=== PATIENT | male | born 1940 | race Caucasian/White ===

== ENCOUNTER 2018-08-06 09:09 | Day surgery (SDC) | payer MEDICARE ==
[~2018-08-06 09:09] MED LIST: Acetaminophen TAB* 325 MG PO PRN; Buffered Lidocaine 1% SYRIN* 1 ML/SYRINGE INTRADERM ONE
[2018-08-06] MEDS ORDERED: Cyclopentolate 1% OPTH.SOL* 2 ML BTL ONE (09:19)
[2018-08-06] MEDS ORDERED: Neomycin/Polymy/Dex OPTH.SUSP* MAXITROL 0.1% 5 ML ONE (09:19)
[2018-08-06] MEDS ORDERED: acetaZOLAMIDE TAB* 250 MG ONE (09:19)
[2018-08-06] MEDS ORDERED: Lidocaine 2% EPI 1:200000 MPF*10-20 ML VIAL ONE (09:19)
[2018-08-06] MEDS ORDERED: Phenylephrine 2.5% OPTH.SOL* 2 ML BTL ONE (09:19)
[2018-08-06] MEDS ORDERED: Lidocaine 1%* 5 ML VIAL ONE (09:19)
[2018-08-06] MEDS ORDERED: Proparacaine 0.5% OPHTH.SOL* 15 ML BTL ONE (09:19)
[2018-08-06] MEDS ORDERED: Povidone Iodine 5% OPTH* 30 ML BTL ONE (09:19)
[2018-08-06] MEDS ORDERED: Ketorolac 0.5% OPHTH (NF) 0.5 % 5 ML BTL ONE (09:19)
[2018-08-06] MEDS ORDERED: Midazolam* 1 MG/ML 2 ML VIAL (2 MG) ONE (10:46)
[2018-08-06 11:46] VITALS: BP 117/44
--- NOTE | 2018-08-06 12:08 | OP ---
OPERATIVE NOTE: DATE OF OPERATION: 08/06/18 DATE OF : 36 SURGEON: Norman Yoder M.D. PREOPERATIVE DIAGNOSIS: Cataract, left eye. POSTOPERATIVE DIAGNOSIS: Cataract, left eye. OPERATIVE PROCEDURE: Extracapsular cataract extraction with intraocular lens implant left eye. PROCEDURE: The patient was brought to the operating room after being given 1/2% Alcaine with epineph rine drops in the preoperative area. The eye was prepped and draped in the usual sterile fashion. S terile drape and eyelid speculum were placed. Again, topical 1/2% Alcaine with epinephrine was given . A paracentesis incision was made at the 3 o'clock position with the No.75 blade. Clear cornea inc ision 2.2 x 2.2-mm was created at the 6 o'clock position starting at the anterior limbus using the 2. 2-mm keratome. The anterior chamber was irrigated with 0.4 mL of 1% non-preservative intracameral li docaine and filled with DisCoVisc. A capsulorrhexis was completed using the cystotome and the Utrata forceps. Hydrodissection was performed with balanced salt solution. The lens nucleus was removed wi th the Phacoemulsification handpiece without incident. Cortex was removed with the irrigation-aspira tion handpiece. The capsular bag was re-inflated using DisCoVisc and an SN60WF 22.5 implant was inse rted with the shooter. A Malyugin ring was used to dilate the pupil prior to capsulorrhexis and rona london after insertion of the lens. The irrigation-aspiration handpiece was used to remove all residual DisCoVisc. The eye was refilled with balanced salt solution and the wound checked and found to be w atertight. Topical Maxitrol drops were given. Indication for complex cataract surgery, pupils abnormalities requiring pupil dilation device. [id number]/[facility] #: [id number]
== END 2018-08-06 12:11 | disposition home or self-care (01) ==
LOC: OREAST 09:09
PROVIDERS: ATTEND Specialist
DX: H25.812 Combined forms of age-related cataract, left eye (principal); Q13.2 Other congenital malformations of iris; H40.053 Ocular hypertension, bilateral; H40.033 Anatomical narrow angle, bilateral; E11.9 Type 2 diabetes mellitus without complications; Z79.84 Long term (current) use of oral hypoglycemic drugs; Z72.0 Tobacco use
CPT/HCPCS: A9270-GY; J2250; V2632

== ENCOUNTER 2018-08-20 09:29 | Day surgery (SDC) | payer MEDICARE ==
[2018-08-20] MEDS ORDERED: Midazolam* 1 MG/ML 2 ML VIAL (2 MG) ONE (11:47)
[2018-08-20] MEDS ORDERED: Cyclopentolate 1% OPTH.SOL* 2 ML BTL ONE (12:30)
[2018-08-20] MEDS ORDERED: Lidocaine 1%* 5 ML VIAL ONE (12:30)
[2018-08-20] MEDS ORDERED: Lidocaine 2% EPI 1:200000 MPF*10-20 ML VIAL ONE (12:30)
[2018-08-20] MEDS ORDERED: Neomycin/Polymy/Dex OPTH.SUSP* MAXITROL 0.1% 5 ML ONE (12:30)
[2018-08-20] MEDS ORDERED: Ketorolac 0.5% OPHTH (NF) 0.5 % 5 ML BTL ONE (12:30)
[2018-08-20] MEDS ORDERED: Proparacaine 0.5% OPHTH.SOL* 15 ML BTL ONE (12:30)
[2018-08-20] MEDS ORDERED: acetaZOLAMIDE TAB* 250 MG ONE (12:30)
[2018-08-20] MEDS ORDERED: Povidone Iodine 5% OPTH* 30 ML BTL ONE (12:30)
--- NOTE | 2018-08-20 12:47 | OP ---
OPERATIVE NOTE: DATE OF OPERATION: 08/20/18 DATE OF : 36 SURGEON: Norman Yoder M.D. PREOPERATIVE DIAGNOSIS: Cataract, right eye. POSTOPERATIVE DIAGNOSIS: Cataract, right eye. OPERATIVE PROCEDURE: Extracapsular cataract extraction with intraocular lens implant right eye. PROCEDURE: The patient was brought to the operating room after being given 1/2% Alcaine with epineph rine drops in the preoperative area. The eye was prepped and draped in the usual sterile fashion. S terile drape and eyelid speculum were placed. Again, topical 1/2% Alcaine with epinephrine was given . A paracentesis incision was made at the 9 o'clock position with the No.75 blade. Clear cornea inc ision 2.2 x 2.2-mm was created at the 12 o'clock position starting at the anterior limbus using the 2 .2-mm keratome. The anterior chamber was irrigated with 0.4 mL of 1% non-preservative intracameral l idocaine and filled with DisCoVisc. A capsulorrhexis was completed using the cystotome and the Utrat a forceps. Hydrodissection was performed with balanced salt solution. The lens nucleus was removed w ith the Phacoemulsification handpiece without incident. Cortex was removed with the irrigation-aspir ation handpiece. The capsular bag was re-inflated using DisCoVisc and an SN60WF 22.5 implant was ins erted with the shooter. A Malyugin ring was used to dilate the pupil prior to capsulorrhexis because of a very small pupil and removed after insertion of the lens. The irrigation- aspiration handpiece was used to remove all residual DisCoVisc. The eye was refilled with balanced salt solution and the wound checked and found to be watertight. Topical Maxitrol drops were given. Indication for complex cataract surgery: Pupil abnormality requiring pupil dilation device. [id number]/[facility] #: [id number]
[2018-08-20 13:40] VITALS: BP 112/48
== END 2018-08-20 12:44 | disposition home or self-care (01) ==
LOC: OREAST 09:29
PROVIDERS: ATTEND Specialist
DX: H25.811 Combined forms of age-related cataract, right eye (principal); Q13.2 Other congenital malformations of iris; H40.053 Ocular hypertension, bilateral; H40.033 Anatomical narrow angle, bilateral; Z72.0 Tobacco use; E11.9 Type 2 diabetes mellitus without complications; Z79.84 Long term (current) use of oral hypoglycemic drugs; Z95.2 Presence of prosthetic heart valve; I10 Essential (primary) hypertension
CPT/HCPCS: A9270-GY; J2250; V2632

== ENCOUNTER 2022-09-01 00:08 | Observation (INO) ==
[2022-09-01 01:25] LABS: ABS Basophils 0.1 10^3/ul (0-0.2); ABS Lymphocytes 0.5 10^3/ul (1.0-4.8); ABS Neutrophils 9.8 10^3/ul (1.5-7.7); Eosinophil % 0.3 %; Hematocrit 35 % (42-52); Lymphocyte % 4.1 %; Mean Corpuscular Hemoglobin 30 pg (27-31); Mean Corpuscular Hgb Conc 32 g/dL (31-36); Mean Corpuscular Volume 94 fL (80-94); Mean Platelet Volume 6.7 fL (7.4-10.4); Platelet Count 268 10^3/uL (150-450); Red Blood Count 3.67 10^6 /uL (4.18-5.48); Red Cell Distribution Width 13 % (10-15); White Blood Count 11.4 10^3/uL (3.5-10.8)
[2022-09-01 02:15] LABS: Albumin 3.6 g/dL (3.2-5.2); Calcium 9.1 mg/dL (8.6-10.3); Potassium 4.6 mmol/L (3.5-5.0); Total Bilirubin 0.4 mg/dL (0.2-1.0)
[2022-09-01 02:21] LABS: Albumin/Globulin Ratio 1.4 (1-3); Creatinine, Serum 0.77 mg/dL (0.67-1.17); Globulin 2.5 g/dL (2-4); Total Protein 6.1 g/dL (6.4-8.9); eGFR CKD-EPI 88.8 (>60)
[2022-09-01] MEDS ORDERED: Iodixanol (CONTRAST) 320 MG/ML 100 ML SDV IV ONE (02:30)
[2022-09-01 03:06] LABS: High Sensitivity Troponin 1 Hr 18 pg/mL (<20)
[2022-09-01] MEDS ORDERED: Enoxaparin 40 MG/0.4 ML SYR SUBCUT SCH (06:00)
[2022-09-01] MEDS: Nicotine PATCH 21 MG/24 HR PATCH TRANSDERM SCH (08:29)
[2022-09-01] MEDS: Enoxaparin 30 MG/0.3 ML SYR SUBCUT SCH (08:30)
[2022-09-02] MEDS ORDERED: Acetaminophen IV 1 GM/100ML 1,000 MG/100 ML BAG IV PRN (00:16)
[2022-09-02] MEDS: Enoxaparin 30 MG/0.3 ML SYR SUBCUT SCH (06:07)
[2022-09-02] MEDS: Nicotine PATCH 21 MG/24 HR PATCH TRANSDERM SCH (08:44)
[2022-09-02 10:14] VITALS: BP 112/66
== END 2022-09-02 12:30 | disposition home or self-care (01) ==
LOC: ED 00:08 → EDHOLD 00:08 → MED 16:56
PROVIDERS: ADMIT Internal Medicine; ATTEND Hospitalist